=== PATIENT | male | born 1995 ===

== ENCOUNTER 2017-07-19 23:01 | Emergency (ER) | payer BC ==
[2017-07-19 23:05] VITALS: BMI 24.7
[2017-07-19] MEDS ORDERED: SODIUM CHLORIDE 1,000 ML IV STA (23:16)
[2017-07-19] MEDS ORDERED: HALOPERIDOL LACTATE 5 MG/ML IM ONE (23:16)
--- NOTE | 2017-07-19 23:29 | PDOC ---
History of Present Illness <Logan He - Last Filed: 07/20/17 04:10> - General History Source: Patient, Friend Exam Limitations: Clinical Condition - History of Present Illness Initial Comments: 07/19/17 23:24 The patient is a 22M with no PMH who presents to the ED with his friends as he is tripping on acid. His friends and him smoked marijuana and the patient took 4 tablets of acid and his friend took 1. His friend states that this has never happened before. The friend feels back to baseline. The patient has never had this reaction before. Unknown allergy status. <Burke Granado - Last Filed: 07/23/17 07:34> - General Chief Complaint: Substance Abuse Stated Complaint: SUBSTANCE ABUSE Time Seen by Provider: 07/19/17 23:05 Past History <Logan He - Last Filed: 07/20/17 04:10> - Suicide/Smoking/Psychosocial Hx Smoking History: Current every day smoker Information on smoking cessation initiated: No <Burke Granado - Last Filed: 07/23/17 07:34> - Past Medical History Allergies/Adverse Reactions: Allergies Allergy/AdvReac Type Severity Reaction Status Date / Time No Known Allergies Allergy Verified 07/19/17 23:27 Home Medications: Ambulatory Orders NK [No Known Home Medication] 07/19/17 Review of Systems - Review of Systems Able to Perform ROS?: No (Combative, incoherent) <Burke Granado - Last Filed: 07/23/17 07:34> *Physical Exam - Vital Signs Last Vital Signs Temp Pulse Resp BP Pulse Ox 120 H 22 148/75 98 07/19/17 23:53 07/19/17 23:04 07/20/17 00:49 07/19/17 23:53 <Logan He - Last Filed: 07/20/17 04:10> - Vital Signs Last Vital Signs Temp Pulse Resp BP Pulse Ox 160 H 22 177/85 100 07/19/17 23:04 07/19/17 23:04 07/19/17 23:04 07/19/17 23:04 - Physical Exam Comments: 07/19/17 23:28 Patient is combative. Only general exam is able to be completed. Patient has clearly urinated himself. HEENT: positive: Other (Pupil's dilated) <VinnyjoanaremingtonBurke - Last Filed: 07/23/17 07:34> Heart Score/ECG Review - ECG Impressions Comment:: 07/20/17 02:56 Sinus tachycardia Rate 101 QRS 88 QTc 430 <VinnyjoanaBurke macedo - Last Filed: 07/23/17 07:34> ED Treatment Course - LABORATORY CBC & Chemistry Diagram: 07/19/17 23:50 07/19/17 23:50 - ADDITIONAL ORDERS Additional order review: Laboratory Results 07/19/17 07/19/17 07/19/17 23:50 23:50 23:50 PT with INR 11.50 INR 1.02 Sodium 138 Potassium 3.4 L Chloride 102 Carbon Dioxide 23 Anion Gap 13 BUN 17 Creatinine 1.4 H Creat Clearance w eGFR > 60 Random Glucose 226 H Calcium 9.1 Magnesium 1.8 Total Bilirubin 0.6 AST 13 L ALT 18 Alkaline Phosphatase 78 Creatine Kinase 238 Creatine Kinase Index 0.5 CK-MB (CK-2) 1.209 Troponin I < 0.02 Total Protein 7.5 Albumin 4.4 Alcohol, Quantitative < 5.0 07/19/17 23:50 RBC 4.76 MCV 88.9 MCHC 33.4 RDW 13.6 MPV 8.1 Neutrophils % 88.1 H Lymphocytes % 6.0 L Monocytes % 5.6 Eosinophils % 0.2 Basophils % 0.1 - Medications Given in the ED: ED Medications Discontinued Medications Generic Name Dose Route Start Last Admin Trade Name Freq PRN Reason Stop Dose Admin Diphenhydramine HCl 50 mg 07/19/17 23:16 07/19/17 23:27 Benadryl Injection - IM 07/19/17 23:17 50 mg ONCE ONE Administration Haloperidol 5 mg 07/19/17 23:16 07/19/17 23:27 Haldol Injection (Fast Acting) - IM 07/19/17 23:17 5 mg ONCE ONE Administration Sodium Chloride 1,000 mls @ 1,000 mls/hr 07/19/17 23:16 07/19/17 23:50 Normal Saline - IV 07/20/17 00:15 1,000 mls/hr ASDIR STA Administration Lorazepam 2 mg 07/19/17 23:16 07/19/17 23:27 Ativan Injection - IM 07/19/17 23:17 2 mg ONCE ONE Administration Lorazepam 2 mg 07/20/17 00:25 07/20/17 00:47 Ativan Injection - IM 07/20/17 00:26 2 mg ONCE ONE Administration <Logan He - Last Filed: 07/20/17 04:10> - LABORATORY CBC & Chemistry Diagram: 07/19/17 23:50 07/19/17 23:50 <Burke Granado - Last Filed: 07/23/17 07:34> Medical Decision Making - Medical Decision Making 07/19/17 23:27 The patient is a 22M who presents to our ED on an acid trip. The patient is combative and a condition 10 was called. Security is at bedside. The patient has incoherent and tangential thoughts, is obviously hallucinating and cannot complete a thought. I have ordered ativan, haldol, and benadryl to sedate the patient. 07/20/17 00:25 Father is at bedside with patient. Patient has undressed himself, is still incoherent and agitated. Will give 2 more of ativan. 07/20/17 02:56 Patient was able to be awoken and does not remember what happened. Father has left to bring the patient clothes. Patient sleeping comfortably. <Burke Granado - Last Filed: 07/23/17 07:34> *DC/Admit/Observation/Transfer <Logan He - Last Filed: 07/20/17 04:10> <Burke Granado - Last Filed: 07/23/17 07:34> Diagnosis at time of Disposition: Intoxication by drug Qualifiers: Complication of substance-induced condition: uncomplicated Qualified Code(s): F19.920 - Other psychoactive substance use, unspecified with intoxication, uncomplicated - Discharge Dispostion Disposition: HOME Condition at time of disposition: Stable - Patient Instructions Printed Discharge Instructions: DI for Adverse Drug Reaction -- Other Additional Instructions: avoid drugs of any type. Please follow up with your primary care by [place] for re-evaluation.
[2017-07-20 00:19] LABS: BASOPHIL 0.1 % (0-2.0); EOSINOPHIL 0.2 % (0-4.5); MCH 29.7 pg (25.7-33.7); MCHC 33.4 g/dl (32.0-35.9); MEAN CELL VOLUME 88.9 fl (80-96); MEAN PLT VOLUME 8.1 fl (7.5-11.1); NEUTROPHILS 88.1 % (42.8-82.8); PLATELET COUNT 299 K/MM3 (134-434); RDW 13.6 % (11.9-15.9); WHITE BLOOD COUNT 20.3 K/mm3 (4.0-10.0)
[2017-07-20 00:44] LABS: INR 1.02 (0.82-1.09); PROTHROMBIN TIME (PATIENT) 11.5 SEC (9.98-11.88)
[2017-07-20 01:06] LABS: ALBUMIN 4.4 g/dl (3.4-5.0); ANION GAP 13 (8-16); BILIRUBIN,TOTAL 0.6 mg/dL (0.2-1.0); CALCIUM 9.1 mg/dL (8.5-10.1); CO2 23 mmol/L (21-32); CREATININE 1.4 mg/dL (0.7-1.3); GLUCOSE,RANDOM 226 mg/dL (74-106); MAGNESIUM 1.8 mg/dL (1.8-2.4); SGOT/AST 13 U/L (15-37); SGPT/ALT 18 U/L (12-78); TOT PROT 7.5 g/dl (6.4-8.2)
[2017-07-20 01:09] LABS: ALK PHOS 78 U/L (45-117); CPK 238 IU/L (39-308); TROPONIN I < 0.02 ng/ml (0.00-0.05)
[2017-07-20 04:13] VITALS: BP 132/71; PULSE 96
--- NOTE | 2017-07-20 04:14 | PDOC ---
Attending Attestation - Resident Resident Name: [email or web address] - ED Attending Attestation I have performed the following: I have examined & evaluated the patient, The case was reviewed & discussed with the resident, I agree w/resident's findings & plan, Exceptions are as noted - Medical Decision Making 07/20/17 04:13 Pt vital signs improved. Pt father presents and will accompany pt home. Discharge Disposition - Diagnosis Intoxication by drug Qualifiers: Complication of substance-induced condition: uncomplicated Qualified Code(s): F19.920 - Other psychoactive substance use, unspecified with intoxication, uncomplicated; F19.920 - Other psychoactive substance use, unspecified with intoxication, uncomplicated; F19.920 - Other psychoactive substance use, unspecified with intoxication, uncomplicated - Discharge Dispostion Disposition: HOME Condition at time of disposition: Stable Admit: No - Patient Instructions Printed Discharge Instructions: DI for Adverse Drug Reaction -- Other Additional Instructions: avoid drugs of any type. Please follow up with your primary care by [facility] for re-evaluation.
--- NOTE | 2017-07-20 09:42 | EKG ---
Test Reason : Blood Pressure : / mmHG Vent. Rate : 101 BPM Atrial Rate : 101 BPM P-R Int : 148 ms QRS Dur : 088 ms QT Int : 332 ms P-R-T Axes : 048 084 044 degrees QTc Int : 430 ms POOR DATA QUALITY, INTERPRETATION MAY BE ADVERSELY AFFECTED SINUS TACHYCARDIA NO PREVIOUS ECGS AVAILABLE Confirmed by HARVEY GLEZ MD ([id number]) on 07/20/2017 9:42:16 AM Referred By: Confirmed By:HARVEY GLEZ MD
== END 2017-07-20 04:00 | disposition home or self-care (01) ==
LOC: JER 23:01
PROC: 3E0337Z Introduction of Electrolytic and Water Balance Substance into Peripheral Vein, Percutaneous Approach (ICD-10-PCS; principal; 2017-07-19)
PROC: 3E023NZ Introduction of Analgesics, Hypnotics, Sedatives into Muscle, Percutaneous Approach (ICD-10-PCS; 2017-07-19)
PROC: 3E023NZ Introduction of Analgesics, Hypnotics, Sedatives into Muscle, Percutaneous Approach (ICD-10-PCS; 2017-07-19)
PROC: 3E033GC Introduction of Other Therapeutic Substance into Peripheral Vein, Percutaneous Approach (ICD-10-PCS; 2017-07-19)
PROC: 3E033GC Introduction of Other Therapeutic Substance into Peripheral Vein, Percutaneous Approach (ICD-10-PCS; 2017-07-19)
DX: F19.220 Other psychoactive substance dependence with intoxication, uncomplicated (principal)
CPT/HCPCS: 36415; 80053; 80307; 82550; 82553; 83735; 84484; 85025; 85610; 93005; 93010; 99284-25